=== PATIENT | male | born 1990 | race Caucasian/White ===

== ENCOUNTER 2024-01-22 19:38 | Emergency (ER) | payer BC, SELFPAY ==
--- NOTE | 2024-01-22 19:47 | ED.SKABFB ---
HPI - Skin/Abscess/Foreign Bdy General Chief complaint: Skin/Abscess/Foreign Body Stated complaint: insect bite Time Seen by Provider: 01/22/24 19:51 Source: patient Mode of arrival: ambulatory Limitations: no limitations History of Present Illness HPI narrative: 33-year-old male presented for complaint of insect bite to the right lower chest over the past 3 days. Endorses mild pressure to the site. States the redness has increased over the past few days after He attempted to squeeze site but was only able to expel clear drainage. Denies significant pain or itching. Has not taken anything for symptoms or applied anything to the site. Denies any other skin concerns. Related Data Allergies Allergy/AdvReac Type Severity Reaction Status Date / Time No Known Allergies Allergy Verified 01/22/24 19:42 Review of Systems Review of Systems: CONSTITUTIONAL: Denies body aches, fever, chills, or sweats. EYES: Denies visual changes, redness, or discharge. ENT: Denies rhinorrhea, congestion CARDIOVASCULAR: Denies chest pain, palpitations, or edema. RESPIRATORY: Denies cough or dyspnea. GASTROINTESTINAL: Denies abdominal pain, nausea, vomiting, or diarrhea. SKIN: per HPI MUSCULOSKELETAL: Denies back pain, joint pain, or myalgia. NEUROLOGIC: Denies headache, numbness, tingling, or weakness. [facility] Past Medical History Medical History Broken collarbone (~2017) Family History Family History Mother Hyperlipidemia Grandparent Diabetes mellitus Alzheimer's disease Social History Social History Smoking status: Current every day smoker Tobacco type: smokeless tobacco Smokeless tobacco user: chewing tobacco Alcohol intake: current Drinks per week: 3 Substance use: never Comments At time of signature, I have reviewed and agree with nursing past medical, surgical, social and family history unless otherwise noted. Please see nursing chart for further information. There is no relevant family history pertinent to the presenting complaint Exam Narrative: GENERAL: Well-appearing ENT: Mucous membranes moist. Oropharynx without edema, erythema or lesions. NECK: Supple. No lymphadenopathy CHEST: Clear to auscultation. HEART: Regular rate and rhythm. SKIN: Warm, dry. Right lower chest with 6 cm diameter area of erythema with scabbed puncture wound at center, darker erythema of 2cm diameter surrounding the puncture, 6cm linear streak extending towards nipple, no fluctuance or active drainage, nontender. NEURO: Alert and oriented x3. Chest: Chest/axillae images: 1. area of erythema Course Course Emergency Course: Patient is aware of diagnosis, understands and agrees to treatment plan. Anticipatory guidance given. Patient agrees to follow-up as directed and is aware of reasons to seek care at the emergency department. Portions of this record may have been created with voice recognition software Level of Care: Express Care Visit Vital Signs Vital signs: Reviewed MDM - Skin/Abscess/Foreign Bdy MDM Narrative Medical decision making narrative: Discussed physical exam findings. Advised supportive measures and signs/symptoms to go to the ER at length. Pt is appropriate for outpt treatment and f/u. Instructed patient to go to nearest ER immediately for any worsening symptoms including but not limited to: fever, spreading rash, pain, sore throat, headache, dizziness, chest pain, trouble breathing, or any symptoms concerning to the patient. Differential Diagnosis Differential diagnosis: Likely abscess of skin or subcutaneous tissue, urticaria, herpes zoster, cellulitis and contact dermatitis Discharge Plan Discharge Clinical Impression: Cellulitis Patient Disposition: Home, Self-Care Condition: Stable Instructions: Antibioti
[2024-01-22 19:52] VITALS: BP 134/92; PULSE 58; RESP 16; TEMP 36.9; O2SAT 100
== END 2024-01-22 20:03 | disposition home or self-care (01) ==
PROVIDERS: Emergency Provider Nurse Practitioner Family
DX: L03.313 Cellulitis of chest wall (principal); F17.220 Nicotine dependence, chewing tobacco, uncomplicated
CPT/HCPCS: 99213; G0463

== ENCOUNTER 2025-05-27 11:42 | Emergency (ER) | payer BC, SELFPAY ==
--- NOTE | 2025-05-27 11:47 | ED_ITS ---
HPI - Skin/Abscess/Foreign Bdy General Chief complaint: Skin/Abscess/Foreign Body Stated complaint: poison ayanna Time Seen by Provider: 05/27/25 11:55 Source: patient Mode of arrival: ambulatory Limitations: no limitations History of Present Illness HPI narrative: Didier is a 34 year old female patient presenting to the clinic today with c/o possible poison ayanna x 8 days. States he was outside pulling weeds prior to developing symptoms. Has been applying ivyrest to the rash. Rash is to his face, arms, and abdomen. No shortness of breath or chest pain. Related Data Allergies Allergy/AdvReac Type Severity Reaction Status Date / Time No Known Allergies Allergy Verified 05/27/25 11:49 Review of Systems Review of Systems: Pertinent positives per HPI. Patient denies any fever, chills, headache, visual changes, dizziness, cough, runny nose, sore throat, shortness of breath, chest pain, palpitations, nausea, vomiting, diarrhea, constipation, abdominal pain, or any urinary issues. [facility] Past Medical History Medical History [facility] (~2017) Family History Family History Mother Hyperlipidemia Grandparent Diabetes mellitus Alzheimer's disease Social History Social History Smoking status: Current every day smoker Tobacco type: smokeless tobacco Smokeless tobacco user: chewing tobacco Alcohol intake: current Drinks per week: 3 Substance use: never Comments At the time of my signature, I reviewed and agree with the nursing past medical, surgical, social, and family history. There is no relevant family history pertinent to the patient complaint. Exam Narrative: General: Well-developed, well nourished, in no apparent distress Head: Normocephalic, atraumatic. Cardio: Regular rate and rhythm, s1 and s2 normal, no murmur appreciated. Resp: Clear to auscultation bilaterally, no rhonchi, rales, wheezing or rubs. Integumentary: [place], warm, and dry, red, raised, itchy rash to the right cheek, left forearm, and scattered over the chest wall and abdomen Course Course Emergency Course: Portions of this record may have been created with voice recognition software. Level of Care: Express Care Visit Vital Signs Vital signs: Vital Signs Temperature 36.6 C 05/27/25 11:48 Pulse Rate 56 L 05/27/25 11:48 Respiratory Rate 18 05/27/25 11:48 Blood Pressure 125/79 05/27/25 11:48 Pulse Oximetry 100 05/27/25 11:48 Oxygen Delivery Room Air 05/27/25 11:48 Temperature 36.6 C 05/27/25 11:48 Pulse Rate 56 L 05/27/25 11:48 Respiratory Rate 18 05/27/25 11:48 Blood Pressure 125/79 05/27/25 11:48 Pulse Oximetry 100 05/27/25 11:48 Oxygen Delivery Room Air 05/27/25 11:48 Vital signs reviewed MDM - Skin/Abscess/Foreign Bdy MDM Narrative Medical decision making narrative: At the time of visit patient is resting comfortably on the exam table. Patient appears to be nontoxic. C/o possible poison ayanna x 8 days. States he was outside pulling weeds prior to developing symptoms. Has been applying ivyrest to the rash. Rash is to his face, arms, and abdomen. No shortness of breath or chest pain. On exam patient has red, raised, itchy rash to the right cheek, left forearm, and scattered over the chest wall and abdomen. Dexamethasone 10 mg IM ordered Medications: Dexamethasone 10 mg IM given in the clinic today. Plan: I suspect patient has poison ayanna dermatitis. Prescription for prednisone and triamcinolone cream was sent to the pharmacy. Supportive measures were discussed with the patient and they voiced understanding discharge instructions and agrees to treatment plan. Return precautions reviewed Differential Diagnosis Differential diagnosis: Likely abscess of skin or subcutaneous tissue, viral exanthem, dermatophytosis, urticaria, herpes zoster, allergic reaction to drug, cellulitis, eczema, insect bites, impetigo and contact dermatitis Discharge Plan Discharge Clinical Impression: Allergic dermatitis due to poison ayanna Patient Disposition: Home Condition: Stable Instructions: Antibiotic Form, Poison Ayanna (ED) Additional Instructions: Apply triamcinolone cream as directed Take prednisone as directed-start on 05/28/25 Avoid hot showers May apply calamine lotion to rash Avoid scratching as this can cause a secondary infection May take benadryl 25-50mg every 6 hours as needed for itching. Follow up with your PCP in 3-5 days if symptoms persist or sooner if they worsen Go to the Emergency Room if symptoms worsen- fever, rash spreading with treatment, shortness of breath, tongue swelling, drooling, or chest pain Patient Language: Greek Prescriptions: New prednisone 10 mg tablet 10 mg PO DAILY Qty: 30 0RF Rx Instructions: 60mg po daily on day 1, 40mg po daily on days 2-4, 30mg po daily on days 5-6, 20mg po daily on days 7-8, 10mg po daily on days 9-10 triamcinolone acetonide 0.1 % cream 1 applic topical BID 7 Days Qty: 30 0RF Follow-up/Referrals: UNKNOWN,DOCTOR [Primary Care Provider] Time of Disposition: 11:58 Quality NIHSS Nursing Documentation ED NIHSS nursing documentation: reviewed/agree
[2025-05-27 11:48] VITALS: BP 125/79; PULSE 56; RESP 18; TEMP 36.6; O2SAT 100
[2025-05-27] MEDS: dexAMETHasone SOD PHOS INJ 10 MG/ML 1 ML VIAL IM (12:02)
--- OUTSIDE RECORDS SUMMARY | 2025-05-27 17:06 | XMS_ITS | Encounter Summary ---
Author Organization [facility] Address [address] [place] [address] Phone Care Team Providers Care Assembler Adjuster Name Role Phone Rosales San MD Primary Care Provider [phone] Encounter Details Date Type Department Care Team (Late st Contact Info) Description 05/11/2025 Results Follow-Up [facility] Surgery [address] [place] [address] Jose Sepulveda MD [address] [place] [address] [place], Post Vasectomy Screen Social History Tobacco Use Types Packs/Day Years Used Date Smoking Tobacco: Never Smokeless Tobacco: Current Chew AUDIT-C Answer Date Recorded Q1: How often do you have a drink containing alc ohol? Monthly or less 02/17/2025 Average Number of Drinks Not on file 025 Frequency of Binge Drinking Not on file 02/06 Sex and Gender Information Value Date Recorded Sex Assigned at Not on file Legal Sex Male 9:28 AM CDT Gender Identity Not on file Sexual Orientation Not on file documented as of this encounter Plan of Treatment Not on file documented as of this encounter Visit Diagnoses Not on filedocumented in this encounter Care Teams Assembler Adjuster Relationship Specialty Start Date End Date Rosales San MD [address] [place] [address] PCP - General 10/26/16 documented as of this encounter
--- OUTSIDE RECORDS SUMMARY | 2025-05-27 17:06 | XMS_ITS | Clinical Summary ---
Author Organization [facility] Address [address] [place] [address] Care Team Providers Care Body Technician Name Role Phone Rosales San MD Primary Care Provider [phone] Allergies No known active allergies Medications LORazepam (ATIVAN) 1 mg tablet Take 1 tablet (1 mg total) by mouth 1 time if needed for anxiety for up to 1 dose 1 tablet 02/17/2025 Active Active Problems Problem Noted Date Diagnosed Date Pain in shoulder 10/24/2016 Fracture of clavicle 10/24/2016 Encounters Date Type Department Care Team Description 05/11/2025 Results Follow-Up [facility] [address] [place] [phone] Jose Sepulveda MD [place], Post Vasectomy Screen from Last 3 Months Social History Tobacco Use Types Packs/Day Years Used Date Smoking Tobacco: Never Smokeless Tobacco: Current Chew Tobacco Cessation:Ready to Q uit: Not Asked; Counseling Given: Not Answered AUDIT-C Answer Date Recorded Q1: How often [...] on file Sexual Orientation Not on file Last Filed Vital Signs Vital Sign Reading Time Taken Comments Blood Pressure 117/75 02/17/2025 8:07 AM CDT Pulse 78 02/17/2025 8:07 AM CDT Temperature - - Respiratory Rate - - Oxygen Saturation - - Inhaled Oxygen Concentration - - Weight 61.2 kg (135 lb) 02/13/2025 11:38 AM CDT Height 170.2 cm (5' 7) 02/13/2025 11:38 AM CDT Body Mass Index 21.14 02/13/2025 11:38 AM CDT Plan of Treatment Health Maintenance Due Date Last Done Comments Depression Screening 1991 Hepatitis C Screening 1991 Varicella Vaccines (1 of 2 - 13+ 2-dose series) 12/25/2004 Hepatitis B Screening 12/25/2009 Regular Well Visit/Exam 18-64 12/25/2009 HPV Vaccines (1 - 3-dose SCD M series) 12/25/2018 Influenza Vaccine (#1) 2025 04/07/2022 DTaP/Tdap/Td Vaccine (2 - Td or Tdap) 04/07/2032 04/07/2022 Pneumococcal vaccine <65 Aged Out No longer eligible based on patient's age to complete this topic Procedures Procedure Name Priority Date/Time Associated Diagnosis Comments SPERMATOZOA, POST VASECTOMY SCREEN Routine 05/08/2025 7:57 AM CDT Encounter for sterilization from Last 3 Months Results * [place], Post Vasectomy Screen (05/08/2025 7:57 AM CDT) [place], Uncentrifuged NONE SEEN NONE SEEN [facility] Comment: The semen sample was evaluated using an uncentrifuged specimen as recommended by the [place] [employer] (AUA) Vasectomy Guideline (November 2011). MOTILITY TNP [facility] Comment: TEST(S) NOT PERFORMED: MOTILITY TIME OF MOTILITY TEST NOT PERFORMED The specimen exceeds stability for the test requested. Semen 05/08/2025 7:57 AM CDT 05/09/2025 3:07 AM CDT Jose Sepulveda MD LAB BODY FLUIDS AND STOOLS ORDER ALICIA Final Result [facility] [id number] [phone] from Last 3 Months Insurance [facility] [employer] Care Teams Body Technician Relationship Specialty Start Date End Date Rosales San MD [address] [place] [address] PCP - General 10/26/16
== END 2025-05-27 12:07 | disposition home or self-care (01) ==
PROVIDERS: Emergency Provider Nurse Practitioner Family
DX: L23.7 Allergic contact dermatitis due to plants, except food (principal); F17.220 Nicotine dependence, chewing tobacco, uncomplicated
CPT/HCPCS: 96372; 99213; G0463; J1100

== ENCOUNTER 2025-06-09 17:27 | Emergency (ER) | payer BC, SELFPAY ==
--- NOTE | ~2025-06-09 | XR_ITS ---
XR finger 1st LT min 2V INDICATION: pain COMPARISON: None FINDINGS: Frontal, lateral and oblique views of the left thumb demonstrate no acute fracture or dislocation. IMPRESSION: No acute fracture or dislocation. Reviewed, dictated and finalized at location S. [facility]
--- NOTE | 2025-06-09 17:30 | ED_ITS ---
HPI - Extremity Injury (Upper) General Chief Complaint: Extremity Injury, Upper Stated Complaint: smash finger Time Seen by Provider: 06/09/25 17:30 Source: patient Mode of arrival: ambulatory Limitations: no limitations History of Present Illness HPI narrative: Patient is a 34-year-old male who presents with left thumb pain and swelling after smashing it on a bed frame 4 days ago. Patient reports the finger tip feels little numb due to the pressure. Patient's tetanus is not up-to-date. Denies any open wounds Related Data Allergies Allergy/AdvReac Type Severity Reaction Status Date / Time No Known Allergies Allergy Verified 06/09/25 17:28 Review of Systems 2 Review of Systems: All systems reviewed & are unremarkable except as noted in HPI and below Constitutional: Constitutional: Denies body ache(s), Denies chills, Denies fatigue, Denies fever(s), Denies headache(s), Denies malaise and Denies weakness Eyes: Eyes: Denies blurry vision, Denies irritation and Denies loss of vision ENT: Denies otalgia, Denies headache(s), Denies nasal discharge, Denies sinus pain and Denies sore throat Cardiovascular: Cardiovascular: Denies chest pain, Denies irregular heart rhythm and Denies dyspnea Respiratory: Respiratory: Denies dyspnea Gastrointestinal: Gastrointestinal: Denies abdominal pain, Denies melena, Denies hematochezia, Denies diarrhea, Denies nausea and Denies vomiting Musculoskeletal: Musculoskeletal: Denies back pain, Denies myalgias and Denies arthralgias Integumentary/Breasts: Skin/Breast: Denies pruritus, Reports nail changes and Denies rash Neurologic: Denies headache(s), Denies loss of vision and Denies weakness Psychiatric: Psychiatric: Reports no additional psychiatric complaints Endocrine: Endocrine: Denies fatigue PMFSH Past Medical History Medical History Broken j luis (~2017) Family History Family History Mother Hyperlipidemia Grandparent Diabetes mellitus Alzheimer's disease Social History Social History Smoking status: Current every day smoker Tobacco type: smokeless tobacco Smokeless tobacco user: chewing tobacco Alcohol intake: current Drinks per week: 3 Substance use: never Comments At time of signature, agree with nursing past medical, surgical, social and family history. There is no relevant family history pertinent to the presenting complaint. Exam 2 Const: General: cooperative, healthy appearing, comfortable, no acute distress and well nourished Nutritional Appearance: well nourished O rientation/consciousness: patient oriented x3 Limitations: no limitations HENMT: Head: normal to inspection, normocephalic and atraumatic Ears: h earing grossly normal bilaterally and external ears normal Face/Nose/Sinus: N ormal external nose present, normal facial exam and face symmetric Face and sinus: normal facial exam and face symmetric Mouth: Yes lip normal Eyes: General: appearance normal, both eyes and all related structures A lignment and Position: alignment normal and position normal Periorbital: p eriorbital findings normal Eyelids: eyelids normal Pupils: Equal, round and reactive pupils present EOM: EOMs intact bilaterally Neck: Neck: normal visual inspection, full ROM and supple Chest: Chest palpation & inspection: normal inspection of the chest Resp: Effort & Inspection: normal respiratory effort and able to speak in complete sentences Auscultation: clear to auscultation bilaterally Cardio: Rate: regular rate Rhythm: regular rhythm Heart sounds: S1 normal heart sound present and S2 normal heart sound present GI: Inspection: normal to inspection Skin: General skin exam: normal color and no rashes or lesions noted Neuro: General: patient oriented x3 and moves all extremities Cranial nerves: Yes Equal, round and reactive pupils present Speech: normal speech Gait exam (Neuro): Normal gait present Extrem: General: normal to inspection, full ROM and no edema Left upper extremity: wrist normal to inspection and normal ROM; no tenderness and no swelling and hand neuromotor exam normal Details: wrist extension normal, thumb opposition normal, thumb IP flexion normal, thumb ADduction normal and fingers 2-5 ABduction normal, neurosensory exam normal Details: radial nerve sensory function normal, ulnar nerve sensory function normal, median nerve sensory function normal and digital nerve sensory function normal, tendon exam normal Location: of the thumb Details: extensor tendon, flexor digitorum profundus and flexor digitorum superficialis, tenderness of the thumb at the distal phalanx, normal ROM of fingers, swelling of the thumb at the distal phalanx and ecchymosis of the thumb at the distal phalanx Other: Psych: Appearance: grossly normal and well kempt Mental Status: mental status grossly normal Speech and movement: Normal speech and movement present Affect: normal affect Attitude: cooperative Thought process: Normal thought process present Course Course Emergency Course: Patient is aware of diagnosis, understands and agrees to treatment plan. Anticipatory guidance given. Patient agrees to follow-up as directed and is aware of reasons to seek care at the emergency department. Portions of this record may have been created with voice recognition software Level of Care: Express Care Visit Vital Signs Vital signs: Vital Signs Temperature 36.6 C 06/09/25 17:35 Pulse Rate 83 06/09/25 17:35 Respiratory Rate 20 06/09/25 17:35 Blood Pressure 147/82 H 06/09/25 17:35 Pulse Oximetry 100 06/09/25 17:35 Oxygen Delivery Room Air 06/09/25 17:35 Temperature 36.6 C 06/09/25 17:35 Pulse Rate 83 06/09/25 17:35 Respiratory Rate 20 06/09/25 17:35 Blood Pressure 147/82 H 06/09/25 17:35 Pulse Oximetry 100 06/09/25 17:35 Oxygen Delivery Room Air 06/09/25 17:35 Procedures Nail Trephination Nail Trephination #1: Nail Trephination Date: 06/09/25 Nail Trephination Time: 18:15 Time out: Yes Location (finger): left and thumb Sterile prep: chlorhexidine Method of drainage: nail cautery Procedure successful: Yes Patient tolerated procedure: well and no complications Nail Trephination Comment: Procedure explained to patient. Verbal consent obtained. Post Procedure pictures below MDM MDM Narrative Medical decision making narrative: tetanus shot updated. Covering with Augmentin as he works with his hands and nail is not secure Pt well hydrated appearing, in no respiratory distress, hemodynamically stable. Recommend supportive care. The patient is stable at time of discharge the clinical impression was discussed and the patient was given the opportunity to ask questions, which were addressed as completely as possible given the information available at present. Anticipatory guidance and return to care precautions were discussed and the importance of primary care follow-up was stressed and encouraged. The patient voiced understanding of the plan, indications to return, and the need for follow-up. Exam findings show no acute concerns or changes Patient is appropriate for outpatient treatment and follow-up. Differential Diagnosis Differential Diagnosis: finger fracture, subungual hematoma, crush injury Medical Records I have reviewed the following patient records and this information was taken into consideration when formulating the assessment and plan.: previous clinic visits Imaging Data Radiologist's impression: ITS Impressions Finger X-Ray 06/09/25 17:57 IMPRESSION: No acute fracture or dislocation. Discharge Plan Discharge Clinical Impression: Subungual hematoma Patient Disposition: Home Condition: Stable Instructions: Subungual Hematoma (ED) Additional Instructions: 1) Please follow-up with Dr. Musa if symptoms not improving. Leave nail on. It will most likely fall off on its own. May take 6 months to regrow. 2) If you have any worsening of symptoms or any other urgent concerns please go to the ER. 3) Please take medications as prescribed and continue taking your home medications as usual. 4) Please read and follow information included in discharge instructions. L Your blood pressure was elevated above 120/80 today at Urgent Care. This puts you above the threshold for follow up visit with a primary care provider. High blood pressure does not usually cause any symptoms, however it may lead to kidney failure, stroke, heart disease just to name a few if untreated . Many people are anxious when seeing a provider or nurse. As a result, you are not diagnosed with hypertension at this time unless your blood pressure is persistently high at two office visits at least one week apart. Some things that can help lower blood pressure are lifestyle modifications, such as light exercise, decreased salt in diet, and weight loss. It is important to follow up with a PCP about this within 1 week. Patient Language: Tunisian Prescriptions: New amoxicillin-pot clavulanate 875-125 mg tablet 1 tablet PO Q12H 10 Days Qty: 20 0RF Follow-up/Referrals: Jaime Musa MD [Physician, Plastic Surgery] - 3 Days Referral Note: subungual hematoma Bean Lockhart MD [Primary Care Provider, Family Practice] - 3 Days Referral Note: establish care Time of Disposition: 18:24
--- OUTSIDE RECORDS SUMMARY | 2025-06-09 17:30 | XMS_ITS | Encounter Summary ---
Author Organization [facility] Address [address] [place] [address] Phone Care Team Providers Care Inventory Assistant Name Role Phone Rosales San MD Primary Care Provider [phone] Encounter Details Date Type Department Care Team (Late st Contact Info) Description 05/11/2025 Results Follow-Up [facility] Phys[facility] Surgery [address] [place] [address] Jose Sepulveda MD [address] [place] [address] [place], Post Vasectomy Screen Social History Tobacco [...] on filedocumented in this encounter Care Teams Inventory Assistant Relationship Specialty Start Date End Date Rosales San MD [address] [place] [address] PCP - General 10/26/16 documented as of this encounter
--- OUTSIDE RECORDS SUMMARY | 2025-06-09 17:30 | XMS_ITS | Clinical Summary ---
Author Organization [facility] Address [address] [place] [address] Care Team Providers Care Label Operator Name Role Phone Rosales San MD Primary Care Provider [phone] Allergies No known active allergies Medications LORazepam (ATIVAN) 1 mg tablet Take 1 tablet (1 mg total) by mouth 1 time if needed for anxiety for up to 1 dose 1 tablet 02/17/2025 Active Active Problems Problem Noted Date Diagnosed Date Pain in shoulder 10/24/2016 Fracture of clavicle 10/24/2016 Encounters Date Type Department Care Team Description 05/11/2025 Results Follow-Up [facility] [address] [place] [phone] Jose Sepulveda MD [place], Post Vasectomy [...] an uncentrifuged specimen as recommended by the [place] [employer] (AUA) Vasectomy Guideline (November 2011). MOTILITY TNP [facility] Comment: TEST(S) NOT PERFORMED: MOTILITY TIME OF MOTILITY TEST NOT PERFORMED The specimen exceeds stability for the test requested. Semen 05/08/2025 7:57 AM CDT 05/09/2025 3:07 AM CDT Jose Sepulveda MD LAB BODY FLUIDS AND STOOLS ORDER ALICIA Final Result [facility] [id number] [phone] from Last 3 Months Insurance [facility] Care Teams Label Operator Relationship Specialty Start Date End Date Rosales San MD [address] [place] [address] PCP - General 10/26/16
[2025-06-09 17:35] VITALS: BP 147/82; PULSE 83; RESP 20; TEMP 36.6; O2SAT 100
[2025-06-09] MEDS: TETANUS,DIPHTHERIA,AC PERTUSSIS ADULT (0.5 ML) BOOSTRIX IM (18:10)
== END 2025-06-09 18:26 | disposition home or self-care (01) ==
PROVIDERS: Emergency Provider Nurse Practitioner Family; PCP Family Medicine
DX: S60.112A Contusion of left thumb with damage to nail, initial encounter (principal); X58.XXXA Exposure to other specified factors, initial encounter; F17.220 Nicotine dependence, chewing tobacco, uncomplicated; Z23 Encounter for immunization
CPT/HCPCS: 11740; 73140; 90471; 90715; 99213; G0463